=== PATIENT | female | born 1990 | race African-American/Black ===

== ENCOUNTER 2023-06-11 06:46 | Inpatient (IN) | payer OTHER ==
[2023-06-11] MEDS ORDERED: OXYTOCIN 10 UNIT/ML 1 ML VIAL IM PRN (07:08)
[2023-06-11] MEDS ORDERED: METHYLERGONOVINE 0.2 MG/ML 1 ML AMP IM PRN (07:08)
[2023-06-11] MEDS ORDERED: miSOPROStoL 200 MCG TAB PO PRN (07:08)
[2023-06-11] MEDS ORDERED: CARBOPROST TROMETHAMINE 250 MCG/ML 1 ML AMP IM PRN (07:08)
[2023-06-11] MEDS ORDERED: TRANEXAMIC 1,000 MG/100ML-NACL 1,000 MG in EMPTY BAG 1 BAG IV PRN (07:08)
[2023-06-11] MEDS ORDERED: LIDOCAINE 0.5% (PF) 5 MG/ML (50 ML SDV) SQ PRN (07:08)
[2023-06-11] MEDS ORDERED: TERBUTALINE 1 MG/ML VIAL SQ PRN (07:08)
[2023-06-11] MEDS ORDERED: OXYTOCIN 30 UNITS/500 ML NS 30 UNIT in SALINE 1 500ML.BAG IV SCH ×2 (07:15→19:15)
[2023-06-11] MEDS: LACTATED RINGERS 1,000 ML IV SCH ×2 (07:25→14:36)
[2023-06-11 07:45] LABS: Basophils % (A) 0 %; Eosinophils # (A) 0.1 k/uL (0-0.7); Eosinophils % (A) 1 %; HCT 31.3 % (34.0-46.0); HGB 10.7 gm/dL (11.4-16.0); Lymphocytes # (A) 1.4 k/uL (1.0-4.8); Lymphocytes % (A) 16 %; MCH 27.9 pg (25.0-35.0); MCHC 34.2 g/dL (31.0-37.0); MCV 81.5 fL (80.0-100.0); Mean Platelet Volume 8.5; Monocytes # (A) 0.6 k/uL (0-1.0); Monocytes % (A) 6 %; Neutrophils # (A) 6.5 k/uL (1.3-7.7); Neutrophils % (A) 74 %; Platelet Count 217 k/uL (150-450); RBC 3.84 m/uL (3.80-5.40); RDW 14.5 % (11.5-15.5); WBC 8.8 k/uL (3.8-10.6)
[2023-06-11 07:58] VITALS: RESP 16
[2023-06-11] MEDS: CLINDAMYCIN 900 MG in DEXTROSE 5% IN WATER 50 ML IVPB SCH ×4 (08:30→16:20)
[2023-06-11] MEDS ORDERED: NALBUPHINE 10 MG/ML (10 ML MDV) IV PRN (08:43)
--- NOTE | 2023-06-11 08:48 | P.HPOB ---
History of Present Illness H&P Date: 06/11/23 Chief Complaint: 39-6/7 weeks, elective induction The patient is a 32-year-old 5 para 2021 admitted at 39-6/7 weeks as established by 13 week ultrasound. She is admitted for elective induction of labor with all signs reassuring. Her has been entirely uncomplicated though she is Rh- and received RhoGAM at 28 weeks. On labor and delivery, all signs reassuring with a category 1 heart rate tracing. She is also known to be group B strep positive and has had antibiotics started. Obstetrical history: 5 para 20-2 with 2 term vaginal deliveries and 2 early losses. Current statistics are listed in history present illness. EDC of 06/12/2023 was established by 13 week ultrasound. Laboratory workup demonstrates a blood type of O- with a negative antibody screen. Rubella status is immune. The remainder of the laboratory workup was within normal limits. One hour Glucola was normal and group B strep status is positive. Gynecologic history: Unremarkable with no history of any infections to include STDs. Review of Systems Review of systems is confined to history of present illness. Past Medical History Past Medical History: No Reported History History of Any Multi-Drug Resistant Organisms: None Reported Additional Past Surgical History / Comment(s): D+C x2 Past Anesthesia/Blood Transfusion Reactions: No Reported Reaction Additional Psychological History / Comment(s): depression 2013 Smoking Status: Former smoker Past Alcohol Use History: None Reported Past Drug Use History: None Reported - Past Family History Father Family Medical History: CVA/TIA, Diabetes Mellitus, Myocardial Infarction ([place]) Mother Family Medical History: CVA/TIA, Diabetes Mellitus, Myocardial Infarction ([place]) Medications and Allergies Home Medications Medication Instructions Recorded Confirmed Type Vit No.179/Iron/Folic 1 tablet PO DAILY 06/11/23 06/11/23 History [ Tablet] Allergies Allergy/AdvReac Type Severity Reaction Status Date / Time Penicillins Allergy Anaphylaxis Verified 06/11/23 07:08 sulfamethoxazole AdvReac Rash/Hives Verified 06/11/23 07:08 [From Bactrim] trimethoprim [From Bactrim] AdvReac Rash/Hives Verified 06/11/23 07:08 Exam Vital Signs Temp Pulse Resp BP Pulse Ox 06/11/23 07:50 97.8 F 102 H 16 126/63 98 Intake and Output 08/06/23 08/07/23 08/07/23 22:59 06:59 14:59 Other: Weight 97.522 kg In general, this is a well-developed, well-nourished woman in no acute distress. Her heart has a regular rhythm and rate without murmur. Her lungs are clear to auscultation bilaterally in all harvey. Her abdomen is gravid, nondistended, has normal active bowel sounds, soft, nontender, and without any palpable masses aside from the uterine fundus. Her extremities are without any cyanosis, clubbing, or edema and are nontender to palpation bilaterally. Digital cervical examination demonstrates her cervix to be 2 cm dilated, 50% effaced, the vertex in presentation -3 station. Artificial rupture of membranes is carried out demonstrating clear fluid. Results Result Diagrams: 06/11/23 07:25 Abnormal Lab Results - Last 24 Hours (Table) 06/11/23 Range/Units 07:25 Hgb 10.7 L (11.4-16.0) gm/dL Hct 31.3 L (34.0-46.0) % Assessment and Plan (1) Term Current Visit: Yes Status: Acute Code(s): Z34.90 - ENCNTR FOR SUPRVSN OF NORMAL , UNSP, UNSP TRIMESTER SNOMED Code(s): 91694773 Plan: The patient is admitted for elective induction of labor. Pitocin augmentation has been started and she has undergone artificial rupture of membranes. She will have close maternal and surveillance and expectant management will be practice. As she is group B strep positive, antibody prophylaxis has been started as well. She is a good candidate for either IV or epidural analgesia, whichever she may choose.
[2023-06-11] MEDS ORDERED: SODIUM CHLORIDE 0.9% 100 ML BAG ONE (14:51)
[2023-06-11] MEDS ORDERED: fentaNYL (PF) 50 MCG/ML 5 ML AMP ONE (14:51)
[2023-06-11] MEDS ORDERED: ROPIVACAINE 5 MG/ML 20 ML AMPULE ONE (14:51)
[2023-06-11] MEDS ORDERED: HYDROcodone/APAP 5-325MG 1 EACH TAB PO PRN (19:05)
[2023-06-11] MEDS ORDERED: HYDROcodone/APAP 7.5-325MG 1 EACH TAB PO PRN (19:05)
[2023-06-11] MEDS ORDERED: HYDROCORTISONE 2.5% RECTAL CREAM 30 GM TUBE RECTAL PRN (19:05)
[2023-06-11] MEDS ORDERED: BENZOCAINE/MENTHOL SPRAY 1 GM/SPRAY AEROSOL TOPICAL PRN (19:05)
[2023-06-11] MEDS ORDERED: diphenhydrAMINE 50 MG CAP PO PRN (19:05)
[2023-06-11] MEDS ORDERED: ZOLPIDEM 5 MG TAB PO PRN (19:05)
[2023-06-11] MEDS ORDERED: SIMETHICONE 80 MG CHEWABLE PO PRN (19:05)
[2023-06-11] MEDS ORDERED: ACETAMINOPHEN TAB 325 MG TAB PO PRN (19:05)
[2023-06-11] MEDS ORDERED: diphenhydrAMINE 25 MG CAP PO PRN (19:05)
[2023-06-11] MEDS ORDERED: diphenhydrAMINE 50 MG/ML 1 ML VIAL IVP PRN ×2 (19:05)
[2023-06-11] MEDS ORDERED: LANOLIN CREAM 5 GM TUBE TOPICAL PRN (19:05)
--- NOTE | 2023-06-11 19:09 | P.PROBDLV ---
Vaginal Delivery Note - . Vaginal Delivery Note: The patient is a 32 year old 5 para 2021 admitted at 39-6/7 weeks as established by good dating parameters. She is admitted for elective induction of labor with all signs reassuring and a favorable cervix. Her has been entirely uncomplicated though she is Rh- and received RhoGAM at 28 weeks. On labor and delivery, all signs reassuring with a category 1 heart rate tracing. Group B strep status is positive. As a result, antibiotic prophylaxis was started. Pitocin augmentation was started and she underwent artificial rupture of membranes demonstrating clear fluid. She made relatively slow progress through the latent phase of labor and had an epidural catheter placed for analgesia her on the onset of the active phase of labor. She then made fairly steady progress through the active phase of labor to complete and +3 station. She pushed over the course of 2 contractions to a normal spontaneous vaginal delivery of a viable 6 lbs. 14 oz. baby boy with Apgars of 9 at 1 minute and 9 at 5 minutes delivered in the right occiput anterior position. The placenta was delivered spontaneously, intact, and grossly normal with a grossly normal three-vessel cord inserted approximate 4-5 lisa meters from the margin of the placental disc. There were no lacerations of the perineum, vagina, or cervix. Estimated blood loss for the case was 100 mL or less. There were no complications. Both mother and are resting comfortably in recovery.
[2023-06-11] MEDS: SENNOSIDES-DOCUSATE SODIUM 1 EACH TAB PO SCH (19:35)
[2023-06-11] MEDS: IBUPROFEN 600 MG TAB PO PRN (21:34)
[2023-06-11] MEDS ORDERED: Rhogam IMMUNE GLOBULIN 1,500 UNIT/1 ML IM ONE (22:20)
[2023-06-12] MEDS: IBUPROFEN 600 MG TAB PO PRN ×2 (04:16→11:34)
[2023-06-12 07:09] LABS: Basophils % (A) 0 %; Eosinophils # (A) 0.1 k/uL (0-0.7); Eosinophils % (A) 1 %; HGB 9.8 gm/dL (11.4-16.0); Lymphocytes # (A) 1.4 k/uL (1.0-4.8); Lymphocytes % (A) 14 %; MCH 28.2 pg (25.0-35.0); MCHC 33.9 g/dL (31.0-37.0); MCV 83.2 fL (80.0-100.0); Mean Platelet Volume 8.9; Monocytes # (A) 0.6 k/uL (0-1.0); Monocytes % (A) 5 %; Neutrophils # (A) 8.4 k/uL (1.3-7.7); Neutrophils % (A) 78 %; Platelet Count 186 k/uL (150-450); RBC 3.49 m/uL (3.80-5.40); RDW 14.5 % (11.5-15.5); WBC 10.7 k/uL (3.8-10.6)
--- NOTE | 2023-06-12 10:01 | P.DS ---
Providers Date of admission: 06/11/23 06:46 Expected date of discharge: 06/12/23 Attending physician: Teto Valerio Primary care physician: Stated None - Discharge Diagnosis(es) (1) Term Current Visit: Yes Status: Acute (2) Normal spontaneous vaginal delivery Current Visit: Yes Status: Acute Hospital Course: The patient is a 32-year-old 5 para 2021 admitted at 39-6/7 weeks by good dating parameters. She is admitted for elective induction of labor with all signs reassuring, category 1 heart rate tracing. Her was uncomplicated though she was Rh- and received RhoGAM at 28 weeks. She was additionally found to be group B strep positive. On labor and delivery, she had antibiotic prophylaxis started as well as Pitocin augmentation. She underwent artificial rupture of membranes for clear fluid. She made progress to the active phase of labor which time an epidural catheter was placed for analgesia. She progressed fairly steadily through the active phase of labor to complete and then pushed to a normal spontaneous vaginal delivery of a viable 6 lbs. 14 oz. baby boy with Apgars of 9 at 1 minute and 9 at 5 minutes. Her course was unremarkable with vital signs remaining stable and her temperature was afebrile throughout. She was deemed stable for discharge on day 1 was discharged home to follow-up in the office in 6 weeks' time routinely. Discharge instructions included calling for any significantly increased bleeding or foul-smelling lochia, significantly increased fever abdominal pain, perineal complaints, breast complaints, or anything else that concerned her. She is additionally instructed to have nothing in the vagina for at least 6 weeks time to include intercourse. She understood her instructions and agrees to follow up as noted above. Discharge medications included continued vitamins as she has opted to breast-feed. She was otherwise to use [id number] analgesic pain medications as needed. Maternal blood type is O- and cord blood was sent for evaluation for the necessity of RhoGAM prior to discharge. Rubella status is immune. Procedures: #1. Antibiotic prophylaxis #2. Pitocin induction #3. Artificial rupture of membranes #4. Epidural analgesia #5. Normal spontaneous vaginal delivery Patient Condition at Discharge: Stable Plan - Discharge Summary New Discharge Prescriptions: No Action Vit No.179/Iron/Folic [ Tablet] 1 tablet PO DAILY Discharge Medication List Vit No.179/Iron/Folic [ Tablet] 1 tablet PO DAILY 06/11/23 [History] Follow up Appointment(s)/Referral(s): Teto Valerio MD [STAFF PHYSICIAN] - 6 Weeks Discharge Disposition: HOME SELF-CARE
[2023-06-12] MEDS: SENNOSIDES-DOCUSATE SODIUM 1 EACH TAB PO SCH (10:35)
[2023-06-12 15:04] VITALS: BP 115/69; PULSE 85; TEMP 98.2
== END 2023-06-12 19:53 | disposition home or self-care (01) | DRG 560 ==
LOC: 4FBP 06:46
PROVIDERS: ADMIT Obstetrics & Gynecology; ATTEND Obstetrics & Gynecology
PROC: 10E0XZZ Delivery of Products of Conception, External Approach (ICD-10-PCS; principal; 2023-06-11)
PROC: 10907ZC Drainage of Amniotic Fluid, Therapeutic from Products of Conception, Via Natural or Artificial Opening (ICD-10-PCS; 2023-06-11)
PROC: 3E033VJ Introduction of Other Hormone into Peripheral Vein, Percutaneous Approach (ICD-10-PCS; 2023-06-11)
PROC: 3E0234Z Introduction of Serum, Toxoid and Vaccine into Muscle, Percutaneous Approach (ICD-10-PCS; 2023-06-11)
DX: O99.824 Streptococcus B carrier state complicating childbirth (principal); Z37.0 Single live birth; O26.893 Other specified pregnancy related conditions, third trimester; Z67.41 Type O blood, Rh negative; Z3A.39 39 weeks gestation of pregnancy; Z87.891 Personal history of nicotine dependence; Z88.0 Allergy status to penicillin; Z88.2 Allergy status to sulfonamides; Z88.8 Allergy status to other drugs, medicaments and biological substances
CPT/HCPCS: 85025; 85461; 86850; 86900; 86901

== ENCOUNTER 2024-06-03 06:00 | Inpatient (IN) | payer OTHER ==
[2024-06-03] MEDS ORDERED: CARBOPROST TROMETHAMINE 250 MCG/ML 1 ML AMP IM PRN (06:17)
[2024-06-03] MEDS ORDERED: TERBUTALINE 1 MG/ML VIAL SQ PRN (06:17)
[2024-06-03] MEDS ORDERED: miSOPROStoL 200 MCG TAB RECTAL PRN (06:17)
[2024-06-03] MEDS ORDERED: OXYTOCIN 10 UNIT/ML 1 ML VIAL IM PRN (06:17)
[2024-06-03] MEDS ORDERED: miSOPROStoL 200 MCG TAB PO PRN (06:17)
[2024-06-03] MEDS ORDERED: LIDOCAINE 0.5% (PF) 5 MG/ML (50 ML SDV) SQ PRN (06:17)
[2024-06-03] MEDS ORDERED: METHYLERGONOVINE 0.2 MG/ML 1 ML AMP IM PRN (06:17)
[2024-06-03] MEDS ORDERED: TRANEXAMIC 1,000 MG/100ML-NACL 1,000 MG in EMPTY BAG 1 BAG IV PRN (06:17)
[2024-06-03] MEDS: OXYTOCIN 30 UNITS/500 ML NS 30 UNIT in SALINE 1 500ML.BAG IV SCH (06:30)
[2024-06-03] MEDS: LACTATED RINGERS 1,000 ML IV SCH (06:37)
[2024-06-03 07:06] LABS: Anisocytosis Slight; Basophils % (A) 0 %; Eosinophils # (A) 0.1 k/uL (0-0.7); Eosinophils % (A) 1 %; HCT 27.2 % (34.0-46.0); HGB 8.6 gm/dL (11.4-16.0); Hypochromasia Moderate; Lymphocytes # (A) 1.4 k/uL (1.0-4.8); Lymphocytes % (A) 16 %; MCH 22.8 pg (25.0-35.0); MCHC 31.7 g/dL (31.0-37.0); Mean Platelet Volume 7.8; Microcytosis Moderate; Monocytes # (A) 0.6 k/uL (0-1.0); Monocytes % (A) 7 %; Neutrophils # (A) 6.5 k/uL (1.3-7.7); Neutrophils % (A) 74 %; Platelet Count 258 k/uL (150-450); Poikilocytosis Slight; RBC 3.77 m/uL (3.80-5.40); WBC 8.8 k/uL (3.8-10.6)
--- NOTE | 2024-06-03 08:39 | P.HPOB ---
History of Present Illness H&P Date: 06/03/24 Chief Complaint: 39-3/7 weeks, elective induction The patient is a 33-year-old 6 para 3-0-2-3 admitted at 39-3/7 weeks as established by an 11-week ultrasound. She is admitted for elective induction of labor with all signs reassuring, category 1 heart rate tracing. Her has been entirely uncomplicated. She is Rh- and received RhoGAM at 28 weeks. She additionally is known to be group B strep positive. Obstetrical history: 6 para 3-0-2-3 with 3 term vaginal deliveries without complications. Current statistics are listed in history of present illness. EDC of 06/07/2024 was established by 11-week ultrasound. Laboratory workup demonstrates a blood type of O- with a negative antibody screen. Rubella status is immune. The remainder of the laboratory workup was within normal limits. Early Glucola as well as second trimester Glucola were within normal limits. Group B strep status is positive. Gynecologic history: Unremarkable with no history of any infections to include STDs. Review of Systems Review of systems is confined to history of present illness Past Medical History Past Medical History: No Reported History History of Any Multi-Drug Resistant Organisms: None Reported Additional Past Surgical History / Comment(s): D+C x2 Past Anesthesia/Blood Transfusion Reactions: No Reported Reaction Past Psychological History: Depression Additional Psychological History / Comment(s): depression 2013 Smoking Status: Former smoker Past Alcohol Use History: None Reported Additional Past Alcohol Use History / Comment(s): quit 9 years ago Past Drug Use History: None Reported - Past Family History Father Family Medical History: Coronary Artery Disease (CAD), Hyperlipidemia, Hypertension Mother Family Medical History: Coronary Artery Disease (CAD), Diabetes Mellitus, Hyperlipidemia, Hypertension Brother(s) Family Medical History: Coronary Artery Disease (CAD), Diabetes Mellitus, Hyperlipidemia, Hypertension, Myocardial Infarction ([place]), Thyroid Disorder Medications and Allergies Home Medications Medication Instructions Recorded Confirmed Type Vit No.179/Iron/Folic 1 tablet PO DAILY 06/11/23 06/03/24 History [ Tablet] Allergies Allergy/AdvReac Type Severity Reaction Status Date / Time Penicillins Allergy Anaphylaxis Verified 06/03/24 06:16 sulfamethoxazole AdvReac Rash/Hives Verified 06/03/24 06:16 [From Bactrim] trimethoprim [From Bactrim] AdvReac Rash/Hives Verified 06/03/24 06:16 Exam Vital Signs Temp Pulse Resp BP Pulse Ox 06/03/24 06:30 97.3 F L 100 16 124/66 98 Intake and Output 06/02/24 06/03/24 06/03/24 22:59 06:59 14:59 Other: Weight 123.831 kg The patient is a well-developed well-nourished woman in no acute distress. Her heart has a regular rhythm and rate without murmur. Her lungs are clear to auscultation bilaterally in all harvey. Her abdomen is gravid, nondistended, has normal active bowel sounds, soft, nontender, and without any palpable masses aside from the uterine fundus. Her extremities are without any cyanosis, clubbing, or significant edema and are nontender to palpation bilaterally. Digital cervical examination demonstrates her cervix to be 2+ centimeters dilated, approximately 50% effaced with the vertex and presentation at -2-3 station. Artificial rupture of membranes is carried out demonstrating clear fluid. Results Result Diagrams: 06/03/24 06:32 Abnormal Lab Results - Last 24 Hours (Table) 06/03/24 Range/Units 06:32 RBC 3.77 L (3.80-5.40) m/uL Hgb 8.6 L (11.4-16.0) gm/dL Hct 27.2 L (34.0-46.0) % MCV 72.0 L (80.0-100.0) fL MCH 22.8 L (25.0-35.0) pg RDW 18.0 H (11.5-15.5) % Assessment and Plan (1) Group B streptococcal infection in Current Visit: Yes Status: Acute Code(s): O98.819 - OTH MATERNAL INFEC/PARASTC DISEASES COMP PREG, UNSP TRI; B95.1 - STREPTOCOCCUS, GROUP B, CAUS ING DISEASES CLASSD [id number] SNOMED Code(s): 145950767 (2) Term Current Visit: Yes Status: Acute Code(s): Z34.90 - ENCNTR FOR SUPRVSN OF NORMAL , UNSP, UNSP TRIMESTER SNOMED Code(s): 64651614 Plan: Antibiotic prophylaxis as well as Pitocin augmentation have been started. She has undergone artificial rupture of membranes. She will have close maternal and surveillance and expectant management will be practiced. She is a good candidate for either IV, epidural, or OB nitrous analgesia, whichever she may choose.
[2024-06-03] MEDS: NALBUPHINE 10 MG/ML (10 ML MDV) IV PRN (09:21)
[2024-06-03] MEDS ORDERED: SODIUM CHLORIDE 0.9% 250 ML BAG ONE (11:20)
[2024-06-03] MEDS ORDERED: fentaNYL (PF) 50 MCG/ML 5 ML AMP ONE (11:20)
[2024-06-03] MEDS ORDERED: ROPIVACAINE 5 MG/ML 30 ML VIAL ONE (11:20)
[2024-06-03] MEDS ORDERED: LANOLIN CREAM 1 GM TUBE TOPICAL PRN (13:22)
[2024-06-03] MEDS ORDERED: SIMETHICONE 80 MG CHEWABLE PO PRN (13:22)
[2024-06-03] MEDS ORDERED: ZOLPIDEM 5 MG TAB PO PRN (13:22)
[2024-06-03] MEDS ORDERED: diphenhydrAMINE 50 MG CAP PO PRN (13:22)
[2024-06-03] MEDS ORDERED: HYDROcodone/APAP 7.5-325MG 1 EACH TAB PO PRN (13:22)
[2024-06-03] MEDS ORDERED: diphenhydrAMINE 50 MG/ML 1 ML VIAL IVP PRN ×2 (13:22)
[2024-06-03] MEDS ORDERED: HYDROCORTISONE 2.5% RECTAL CREAM 30 GM TUBE RECTAL PRN (13:22)
[2024-06-03] MEDS ORDERED: HYDROcodone/APAP 5-325MG 1 EACH TAB PO PRN (13:22)
[2024-06-03] MEDS ORDERED: diphenhydrAMINE 25 MG CAP PO PRN (13:22)
--- NOTE | 2024-06-03 13:26 | P.PROBDLV ---
Vaginal Delivery Note - . Vaginal Delivery Note: The patient is a 33-year-old 6 para 3-0-2-3 admitted at 39-3/7 weeks by good dating parameters. She is admitted for elective induction of labor with all signs reassuring, category 1 heart rate tracing. She is Rh- and received RhoGAM at 28 weeks. She additionally was noted to be group B strep positive. As a result, she had Pitocin augmentation started as well as antibiotic prophylaxis for group B strep. She underwent artificial rupture of membranes for clear fluid. She made progress to the active phase of labor and had an epidural catheter placed for analgesia. She then progressed quickly through the active phase of labor to complete and 0 station. She pushed over the course of 1 contraction to a normal spontaneous vaginal delivery of a 7 pound 1 ounce baby girl with Apgars of 8 at 1 minute and 9 at 5 minutes delivered in the left occiput anterior position. The placenta was delivered spontaneously, intact, and grossly normal with a grossly normal three-vessel cord inserted approximately 5 cm from the margin of the placental disc. There were no lacerations the perineum, vagina, or cervix. Estimated blood loss for the case was approximately 100 mL. There were no complications. Both mother and are resting comfortably in recovery.
[2024-06-03] MEDS ORDERED: OXYTOCIN 30 UNITS/500 ML NS 30 UNIT in SALINE 1 500ML.BAG IV SCH (13:30)
[2024-06-03] MEDS: BENZOCAINE/MENTHOL SPRAY 1 GM/SPRAY AEROSOL TOPICAL PRN (13:54)
[2024-06-03] MEDS: IBUPROFEN 600 MG TAB PO PRN (16:04)
[2024-06-03] MEDS: Rhogam IMMUNE GLOBULIN 1,500 UNIT/1 ML IM ONE (17:27)
[2024-06-03] MEDS: ACETAMINOPHEN TAB 325 MG TAB PO PRN (19:47)
[2024-06-03] MEDS: SENNOSIDES-DOCUSATE SODIUM 1 EACH TAB PO SCH (19:48)
[2024-06-04 01:21] VITALS: RESP 16; TEMP 98
[2024-06-04 08:19] VITALS: BP 125/75; PULSE 82
[2024-06-04 08:23] LABS: Anisocytosis Slight; Basophils % (A) 0 %; Eosinophils # (A) 0.1 k/uL (0-0.7); Eosinophils % (A) 1 %; HGB 8.4 gm/dL (11.4-16.0); Hypochromasia Marked; Lymphocytes # (A) 1.6 k/uL (1.0-4.8); Lymphocytes % (A) 17 %; MCH 22.9 pg (25.0-35.0); MCHC 30.9 g/dL (31.0-37.0); MCV 74.1 fL (80.0-100.0); Mean Platelet Volume 9.4; Microcytosis Moderate; Monocytes # (A) 0.5 k/uL (0-1.0); Monocytes % (A) 5 %; Neutrophils # (A) 6.9 k/uL (1.3-7.7); Neutrophils % (A) 75 %; Platelet Count 237 k/uL (150-450); Poikilocytosis Slight; RBC 3.65 m/uL (3.80-5.40); RDW 18.7 % (11.5-15.5); WBC 9.3 k/uL (3.8-10.6)
--- NOTE | 2024-06-04 08:41 | P.DS ---
Providers Date of admission: 06/03/24 06:09 Expected date of discharge: 06/04/24 Attending physician: Teto Valerio Primary care physician: Vika Kraft - Discharge Diagnosis(es) (1) Group B streptococcal infection in Current Visit: Yes Status: Acute (2) Term Current Visit: Yes Status: Acute (3) Normal spontaneous vaginal delivery Current Visit: Yes Status: Acute Hospital Course: The patient is a 33-year-old 6 para 3-0-2-3 admitted at 39-3/7 weeks by good dating parameters. She is admitted for elective induction with a category and heart rate tracing. Her was uncomplicated. She is Rh- and received RhoGAM at 28 weeks. She additionally was group B strep positive. On labor and delivery, she had Pitocin started with antibiotic prophylaxis and underwent artificial rupture of membranes for clear fluid. She had an epidural catheter placed around the onset of the active phase of labor and progressed quickly through the active phase to complete. She pushed over 1 contraction to a normal spontaneous vaginal delivery of a viable 7 pound 1 ounce baby girl with Apgars of 8 at 1 minute and 9 at 5 minutes. Her course was unremarkable with vital signs remaining stable and her temperature was afebrile throughout. She was deemed stable for discharge on day #1 and was discharged home to follow-up in the office in 6 weeks time routinely. Discharge instructions included calling for any significantly increased bleeding or foul- smelling lochia, significantly increased fever or abdominal pain, perineal complaints, breast complaints, or anything else that concerned her. She was additionally instructed to have nothing in the vagina for at least 6 weeks time to include intercourse. She understood her instructions and agrees to follow-up as noted above. Discharge medications included continued vitamins as she has opted to breast-feed. She was to otherwise use [id number] analgesic pain medications as needed. She was additionally instructed to use iron sulfate daily as she is moderately anemic both prior to delivery and after though no significant changes been noted. Maternal blood type is O- and rubella status is immune. cord blood was sent for the evaluation of the necessity of RhoGAM prior to discharge. Procedures: #1. Pitocin induction #2. Antibiotic prophylaxis #3. Artificial rupture of membranes #4. Epidural analgesia #5. Normal spontaneous vaginal delivery Patient Condition at Discharge: Stable Plan - Discharge Summary New Discharge Prescriptions: No Action Vit No.179/Iron/Folic [ Tablet] 1 tablet PO DAILY Discharge Medication List Vit No.179/Iron/Folic [ Tablet] 1 tablet PO DAILY 06/11/23 [History] Follow up Appointment(s)/Referral(s): Teto Valerio MD [STAFF PHYSICIAN] - 07/15/24 2:15 pm Discharge Disposition: HOME SELF-CARE
== END 2024-06-04 15:41 | disposition home or self-care (01) | DRG 560 ==
LOC: 4FBP 06:09
PROVIDERS: ADMIT Obstetrics & Gynecology; ATTEND Obstetrics & Gynecology
PROC: 10E0XZZ Delivery of Products of Conception, External Approach (ICD-10-PCS; principal; 2024-06-03)
PROC: 10907ZC Drainage of Amniotic Fluid, Therapeutic from Products of Conception, Via Natural or Artificial Opening (ICD-10-PCS; 2024-06-03)
PROC: 3E033VJ Introduction of Other Hormone into Peripheral Vein, Percutaneous Approach (ICD-10-PCS; 2024-06-03)
DX: O99.824 Streptococcus B carrier state complicating childbirth (principal); F32.A Depression, unspecified; O99.344 Other mental disorders complicating childbirth; O26.893 Other specified pregnancy related conditions, third trimester; Z37.0 Single live birth; Z3A.39 39 weeks gestation of pregnancy; Z82.49 Family history of ischemic heart disease and other diseases of the circulatory system; Z87.891 Personal history of nicotine dependence; Z88.0 Allergy status to penicillin; Z88.2 Allergy status to sulfonamides; Z88.1 Allergy status to other antibiotic agents; Z67.41 Type O blood, Rh negative
CPT/HCPCS: 85025; 85461; 86850; 86900; 86901

== ENCOUNTER → 2024-09-24 | Outpatient (CLI) | payer OTHER ==
--- NOTE | 2024-09-24 12:13 | XR ---
EXAMINATION TYPE: XR wrist complete RT DATE OF EXAM: 09/24/2024 12:09 PM COMPARISON: None. CLINICAL INDICATION: Female, 33 years old with history of SPC DISORDER OF TENDON, RIGHT WRIST M67.833 , pain TECHNIQUE: XR wrist complete RT views were obtained FINDINGS: There is no acute fracture/dislocation evident. The joint spaces appear within normal limi ts. The overlying soft tissue appears unremarkable. IMPRESSION: No acute fracture or dislocation seen. [facility], , 09/24/2024 12:11 PM
== END | disposition home or self-care (01) ==
LOC: RADXRMAIN 11:55
PROVIDERS: ATTEND Family Medicine
DX: M67.833 Other specified disorders of tendon, right wrist (principal)